=== PATIENT | female | born 1980 | race Two or more races ===

== ENCOUNTER 2017-08-17 08:01 | Day surgery (SDC) | payer BC ==
[~2017-08-17] VITALS: Ht 175.3 cm; Wt 77.1 kg
[2017-08-17] VITALS (10 sets, daily range): BP systolic 116–146; BP diastolic 59–101
--- NOTE | 2017-08-17 06:56 | Pre-Procedure Note/Attestation ---
Pre-Procedure Note/Attestation Complete Prior to Procedure Planned Procedure: right Procedure Narrative: rt shoulder scope, sad, full cher, posterior labral repair Indications for Procedure Pre-Operative Diagnosis: rt shoulder labral tear Attestation I attest that I discussed the nature of the procedure; its benefits; risks and complications; and alternatives (and the risks and benefits of such alternatives ), prior to the procedure, with the patient (or the patient's legal medical billing representative). I attest that, if there was a reasonable possibility of needing a blood transfusion, the patient (or the patient's legal medical billing representative) was given the [facility] standardized written summary, pursuant to the Patricio Ravinia Blood Safety Act ([place] Health and Safety Code # 1645, as amended). I attest that I re-evaluated the patient just prior to the surgery and that there has been no change in the patient's H&P, except as documented below: none CARY MAHMOOD Aug 17, 2017 06:56
[~2017-08-17 08:01] MED LIST: CYCLOBENZAPRINE10 MG ORAL; Clindamycin 600mg 50 ML IV ONE; IBUPROFEN600 MG ORAL; SPIRONOLACTONE1 EACH ORAL; celeBREX 200mg Cap **SURGERY PATIENTS ONLY ORAL ONE; oxyCONTIN 20mg tab ORAL ONE
[2017-08-17] MEDS ORDERED: celeBREX 200mg Cap **SURGERY PATIENTS ONLY ORAL ONE (08:50)
[2017-08-17] MEDS ORDERED: Sodium Chloride 10ml vial INJ ONE (09:00)
[2017-08-17] MEDS ORDERED: Propofol 200mg/20ml IV ONE (09:00)
[2017-08-17] MEDS ORDERED: fentaNYL 100 mcg/2 mL IV ONE (09:00)
[2017-08-17] MEDS ORDERED: Midazolam 2mg/2ml Inj ONE (09:00)
[2017-08-17] MEDS ORDERED: Lidocaine 1% MPF 10mg/ml 5ml ONE (09:00)
[2017-08-17] MEDS ORDERED: LR 1000ml ONE (09:00)
[2017-08-17] MEDS ORDERED: Dexamethasone 4mg/ml vial ONE (09:00)
[2017-08-17] MEDS ORDERED: Ropivacaine 5mg/ml Vial 30ml INJ ONE (09:05)
[2017-08-17] MEDS ORDERED: PERCOCET 5-3251 EACH ORAL (09:08)
[2017-08-17] MEDS ORDERED: LR 1000ml 1,000 ML IVLG SCH (10:27)
--- NOTE | 2017-08-17 10:27 | Anethesia Preoperative Eval ---
Anesthesia Pre-op PMH/ROS General Date of Evaluation: Aug 17, 2017 Time of Evaluation: 09:11 Anesthesiologist: Nakita ASA Score: ASA 2 Mallampati Score Class I : Soft palate, uvula, fauces, pillars visible Class II: Soft palate, uvula, fauces visible Class III: Soft palate, base of uvula visible Class IV: Only hard plate visible Mallampati Classification: Class I Surgeon: Hernandez Diagnosis: R Shoulder Pain Surgical Procedure: R Shoulder Arthroscopy, SAD, Mini Binu, Labral Repair Anesthesia History: none Family History: no anesthesia problems Allergies: Coded Allergies: PENICILLINS (Verified Allergy, Unknown, 08/16/17) Medications: see eMAR Past Medical History Pulmonary: Reports: other - Bronchitis PSxH Narrative: L Ring Finger ORIF Anesthesia Pre-op Phys. Exam Physician Exam Last Vital Signs Date Time Temp Pulse Resp B/P (MAP) Pulse Ox O2 Delivery O2 Flow Rate FiO2 08/17/17 08:50 98.5 54 18 122/70 100 Room Air Constitutional: NAD Neurologic: CN 2-12 intact Cardiovascular: RRR Respiratory: CTA Gastrointestinal: S/NT/ND Airway Exam Mallampati Score: Class II MO: full ROM: full Teeth: intact Anesthesia Pre-op A/P Risk Assessment & Plan Assessment: ASA 2 Plan: GA, BIS, GlideScope Status Change Before Surgery: No Pre-Antibiotics Dru Grams Ancef IV Given Within 1 Hr of Incision: Yes Time Given: 09:56 Cedric Mace MD Aug 17, 2017 10:27
--- NOTE | 2017-08-17 10:28 | Immediate Post-Op Evaluation ---
Immediate Post-Op Evalulation Immediate Post-Op Evalulation Procedure: R Shoulder Arthroscopy, SAD, Mini Binu, Labral Repair Date of Evaluation: Aug 17, 2017 Time of Evaluation: 12:14 IV Fluids: 800 LR Blood Products: 0 Estimated Blood Loss: 20 Urinary Output: 0 Blood Pressure Systolic: 121 Blood Pressure Diastolic: 64 Pulse Rate: 98 Respiratory Rate: 16 O2 Sat by Pulse Oximetry: 99 Temperature (Fahrenheit): 97.8 Pain Score (1-10): 1 Nausea: No Vomiting: No Complications 0 Patient Status: awake, reacts, patent, extubated, none Hydration Status: adequate Dru Grams Ancef IV Given Within 1 Hr of Incision: Yes Time Given: 09:56 Cedric Mace MD Aug 17, 2017 10:28
[2017-08-17] MEDS ORDERED: DiphenhydrAMINE 50mg/ml Inj IVP PRN (10:30)
[2017-08-17] MEDS ORDERED: oxyCODONE HCL/Acetaminophen 5/325mg ORAL PRN (10:30)
[2017-08-17] MEDS ORDERED: Atropine Inj 1mg/10ml Syr IV PRN (10:30)
[2017-08-17] MEDS ORDERED: Metoclopramide 10mg/2ml Inj IVP PRN (10:30)
[2017-08-17] MEDS ORDERED: Norco 7.5mg/325mg tab ORAL PRN (10:30)
[2017-08-17] MEDS ORDERED: Hydromorphone 0.5mg/0.5ml inj IVP PRN (10:30)
[2017-08-17] MEDS ORDERED: fentaNYL 100 mcg/2 mL IV PRN (10:30)
[2017-08-17] MEDS ORDERED: LORazepam Inj 2mg/ml 1ml IV PRN (10:30)
[2017-08-17] MEDS ORDERED: Ketorolac 30mg Inj IV PRN ×2 (10:30)
[2017-08-17] MEDS ORDERED: Norco 5mg/325mg tab ORAL PRN ×2 (10:30→16:01)
[2017-08-17] MEDS ORDERED: Midazolam 2mg/2ml Inj IVP PRN (10:30)
--- NOTE | 2017-08-17 10:31 | 48 Hour Post Anesthesia Eval ---
Post Anesthesia Evaluation Procedure: R Shoulder Arthroscopy, SAD, Mini Binu, Labral Repair Date of Evaluation: Aug 17, 2017 Time of Evaluation: 14:22 Blood Pressure Systolic: 124 0: 71 Pulse Rate: 79 Respiratory Rate: 18 Temperature (Fahrenheit): 97.8 O2 Sat by Pulse Oximetry: 99 Airway: patent Nausea: No Vomiting: No Pain Intensity: 1 Hydration Status: adequate Cardiopulmonary Status: Stable Mental Status/LOC: patient returned to baseline Follow-up Care/Observations: 0 Post-Anesthesia Complications: 0 Follow-up care needed: ready to discharge Cedric Mace MD Aug 17, 2017 10:31
[2017-08-17] MEDS ORDERED: NS Irrig 4000ml IRRIG ONE (11:16)
--- NOTE | 2017-08-17 11:59 | Brief Operative Note ---
Immediate Post Operative Note Operative Note Chief Complaint: rt shoulder pain Pre-op Diagnosis: rt shoulder posterior labral tear Procedure: rt shoulder scope, sad, full cher, posterior labral repair Post-op Diagnosis: same as pre-op Findings: consistent w/pre-op dx studies Surgeon: ganjianpour. hilario Double Needle Operator: marin munoz Anesthesiologist: md pranav Anesthesia: general, regional Specimen: none Complications: none Condition: stable Fluids: ns Estimated Blood Loss: minimal Drains: none Implant(s) used?: Yes - biomet LUIS MUNOZ Aug 17, 2017 11:59
[2017-08-17] MEDS ORDERED: D5 1/2NS 1,000 ML IV SCH (16:01)
[2017-08-17] MEDS ORDERED: HYDROmorphone 1mg/ml Carpuject SUBQ PRN (16:01)
[2017-08-17] MEDS ORDERED: Tylenol #3 tab (300mg/30mg) ORAL PRN (16:01)
--- NOTE | 2017-08-17 22:00 | Operative Note - Dictated ---
DATE OF OPERATION: 08/17/2017 PREOPERATIVE DIAGNOSES: 1. Right shoulder posterior labral tearing. 2. Right shoulder impingement. 3. Right shoulder acromioclavicular joint arthritis. POSTOPERATIVE DIAGNOSES: 1. Right shoulder posterior labral tearing. 2. Right shoulder glenoid chondral damage in the posteroinferior aspect of the glenoid measuring 4 x 8 mm full-thickness chondral damage and loss. 3. Right shoulder acromioclavicular joint arthritis with impingement. PROCEDURE: 1. Right shoulder arthroscopy and extensive intra-articular shaving. 2. Right shoulder posterior labral repair using single JuggerKnot 1.5 mm anchor. 3. Right shoulder subacromial bursoscopy, bursectomy, and subacromial decompression. 4. Right shoulder full Binu procedure and resection of the distal 1 cm of the clavicle. SURGEON: Jimbo Ng M.D. PEDICAB DRIVER: Francoise Edge PA-C. Quality Assurance Monitor Body was present during the actual operative portion of the case and was important and essential part of the operation. During the operation, the health care assistant held and operated the arthroscopic camera for visualization, assisted by manipulating the arm to help with visualization, and helped with essential parts of the repair process as necessary such as operating surgical instruments under surgeon supervision, suture management, and wound closures. ANESTHESIOLOGIST: Cedric Mace M.D. ANESTHESIA: LMA anesthesia. ESTIMATED BLOOD LOSS: Minimal. COMPLICATIONS: None. SURGICAL INDICATION: The patient is a 36-year-old female who sustained the above injury to her shoulder. The patient was treated non-operative initially, but this did not alleviate the patients symptoms. Therefore, after discussing all non-surgical and surgical options, and discussing all foreseeable risk and benefits of surgery, the patient opted for surgical treatment as described above. PATIENT POSITIONING: The patient was brought to the operating room table and was placed on the operating room table. All pressure points were well padded. General anesthesia was induced and patient was then placed in the lateral decubitus position. All pressure points were well padded again and an axillary roll was placed. The patient's shoulder was then prepped and draped in the usual sterile fashion. Time out was performed and the appropriate preoperative antibiotic was given by the anesthesiologist. EXAMINATION OF SHOULDER UNDER ANESTHESIA: The shoulder was examined under anesthesia with all muscles well relaxed. The shoulder was forward flexed, abducted and was placed through full range of external and internal rotation. The anterior, posterior, and inferior stability of the shoulder was checked. The exam revealed no evidence of adhesive capsulitis and no evidence of instability. PORTAL PLACEMENT: The posterior portal was established 2 cm inferior and 1 cm medial to the edge of the posterior acromion. 1 cm skin incision was made using an eleven blade and using the blunt obturator, the cannula was gently placed through the capsule. The midglenoid portal was established just lateral to the coracoid process under direct visualization. Direction of the cannula was first established using a spinal needle, and subsequently, the cannula was placed through the capsule with a blunt obturator. The anterior superior cannula was established under direct visualization off the anterior lateral edge of the acromion and just anterior to the biceps tendon through the rotator interval. The directional of cannula was first established using a spinal needle, and subsequently, the cannula was placed through the capsule with a blunt obturator. DIAGNOSTIC ARTHROSCOPY: The biceps tendon was probed and pulled through the joint for visualization. It appeared normal. The biceps anchor was palpated with a probe and was visualized. It appeared well attached and there was no evidence of SLAP tear. The posterior labrum and axillary recess was visualized. There was a posterior labral tearing which could be visualized much better from anterior portal. There was chondral damage over the posteroinferior glenoid chondral surface measuring 4 x 8 mm. This was a full-thickness chondral damage with unstable chondral flap. The articular surface of the rotator cuff was visualized and probed next. There was no evidence of articular-sided rotator cuff tear extending from the supraspinatus back to the posterior cuff. The humeral head articular surface was then visualized. There was no evidence of articular cartilage damage. Next the anterior labrum, middle gleno-humeral ligament, subscapularis tendon, and the anterior inferior gleno-humeral ligament were evaluated. These structures were completely normal. At this point, the scope was moved to the midglenoid portal and the posterior structures including the posterior labrum, posterior capsule and posterior cuff were visualized. There was posterior labral tearing which was attached itself inferiorly onto the glenoid neck. The subscapularis recess was devoid of any loose bodies and the anterior capsule was well attached to the humeral neck. The middle and anterior inferior glenohumeral ligament was visualized. These structures were completely normal. OPERATIVE DEBRIDEMENTS AND REPAIR: Care was given to all partial thickness tears and frayed structures in the shoulder joint. The frayed rotator cuff and labrum was debrided using a shaver initially through the anterior portal and subsequently through the posterior portal to complete the debridement. This allowed for smooth debridement of all affected structures and all loose fragments were removed. At this point, care was given to the posterior labral tear. Using the elevator, this was mobilized and subsequently using a shaver, the edge of the bone was cleared and the bone was abraded to create a bleeding surface. At this point, a single 1.5 mm JuggerKnot anchor was placed in and labral repair was performed with a horizontal mattress configuration. This brought the labrum up more laterally and the entire glenoid end was covered and created a bumper effect posteriorly and posteroinferiorly. At this point, care was given to the glenoid chondral damage. This was debrided to stable zone. At this point, an abrasion chondroplasty of the glenoid was performed to create bleeding surfaces for fibrocartilage regeneration. DIAGNOSTIC BURSOSCOPY AND SUBACROMIAL DECOMPRESSION: The subacromial bursa was entered from the posterior portal. The anterior portal was established under the CA ligament using a switching stick. Subacromial arthroscopy was initiated. There was extensive bursitis and thickened and inflamed bursa tissue present. The CA ligament appeared to be scuffed and frayed. The shaver was placed through the anterior cannula and debridement of the hypertrophic bursa tissue was accomplished. Once visualization was adequate, a lateral portal was established using a blunt trochar in the mid portion of the acromion bone in the anterior-posterior direction and approximately 2 cm lateral to the lateral edge of the acromion. Using combination of shaver and electrocautery, the CA ligament was released from the undersurface of the acromion and a complete bursectomy was accomplished. At this point, a subacromial decompression was performed using a carol initially taking off 5-8 mm of the anterolateral edge of the acromion from the lateral portal and viewing from the posterior portal. Then the lateral border of the undersurface of the acromion was decompressed to the same dept as the anterolateral edge. A posterior trough was then created in the acromion in line with the posterior edge of the clavicle. At this point, the scope was placed in the lateral portal and the subacromial decompression was performed from the posterior portal decompressing the undersurface of the acromion to dept of 5-8 mm. The decompression was performed anterior to the previously marked trough all the way medially to the level of the AC joint. At all times, care was given not to take off too much bone in order to avoid risk of fracture of the acromion. An excellent subacromial decompression was performed in this fashion. At this point, the bursal side of the rotator cuff was examined. All the bursa over the rotator cuff was removed and the rotator cuff was examined with a probe. The arm was placed into external rotation, neutral, and then internal rotation and there was no evidence of tear of the rotator cuff. The scope was then placed in the posterior portal and the subacromial decompression was rechecked to assure there is no area of bone spur that would be still impinging onto the rotator cuff. EVALUATION OF DISTAL CLAVICLE AND DISTAL CLAVICLE RESECTION: Care was given to the distal end of the clavicle. Using electrocautery and milly, the distal end of the bursa and soft tissue around the distal end of the clavicle was debrided and cleaned. Care was given not to inflict excessive trauma to the ligaments of the AC joint. The distal end of the clavicle appeared to have an inferior osteophyte extending down well bellow the level of the acromion at the level of the AC joint. This appeared to be impinging onto the supraspinatus muscle belly and the musculotendinous junction of the rotator cuff. The entire AC joint appeared to be arthritic as well. A full Binu procedure was then performed resecting the distal 1 cm of the clavicle using a carol. The resection was initially performed from the posterior portal and view from the lateral portal, and it subsequently completed viewing from the posterior portal and resecting through the anterior portal with a carol to assure adequate and even resection. Care was given not to damage the superior acromioclavicular ligaments or the coracoacromial ligaments. The extend of the resection was measured by measuring the distance between two spinal needles that were placed perpendicularly through the skin at the edge of the acromion and distal clavicle. CONDITION AT DISCHARGE FROM OPERATING ROOM: The skin was re-approximated and sterile dressing and sling were applied. All lap counts and instrument counts were correct. The patient tolerated the procedure well without complications and was taken to the recovery room in stable conditions. Jimbo Ng M.D. DR: Julieth JOB#: [id number] CC:
== END 2017-08-17 14:10 | disposition home or self-care (01) ==
LOC: SUR 08:01
DX: S43.401A Unspecified sprain of right shoulder joint, initial encounter (principal); M75.41 Impingement syndrome of right shoulder; M19.011 Primary osteoarthritis, right shoulder; F17.200 Nicotine dependence, unspecified, uncomplicated; Z83.3 Family history of diabetes mellitus; Z82.61 Family history of arthritis; Z80.8 Family history of malignant neoplasm of other organs or systems; Z88.0 Allergy status to penicillin; X58.XXXA Exposure to other specified factors, initial encounter; Y93.9 Activity, unspecified; Y92.9 Unspecified place or not applicable
CPT/HCPCS: 29807; 29823; 29824; 81025; J0690; J1100; J2250; J2405; J2704; J2795; J3010; J7120; 94003; 94150; C1713